=== PATIENT | female | born 1955 | race Caucasian/White ===

== ENCOUNTER 2018-02-11 05:30 | Day surgery (SDC) | payer OTHER ==
[~2018-02-11] VITALS: Ht 162.6 cm; Wt 99.8 kg
--- NOTE | ~2018-02-11 | H ---
[facility] [place] [address] HISTORY AND PHYSICAL Name: MIAN ESQUIVEL Room #: DEP [facility]..#: [id number] Admission: 02/11/18 Attend Phys: Sulaiman Colon MD Discharge: 02/11/18 Date of : 53 Report #: [id number] THIS REPORT FOR: //name// CC: FAM unknown Sulaiman Colon DATE OF PROCEDURE: 02/11/2018 HISTORY OF PRESENT ILLNESS: The patient underwent tooth extraction with bone graft placement on 01/02/2018. One week later, she developed a sinus infection with pressure and discomfort in her left cheek with congestion. She was placed on three different antibiotics and steroids, but still is not doing well. A CT scan of her sinuses shows complete opacification of the left maxillary sinus with loss of bone along the floor in the area of her extraction. PAST MEDICAL HISTORY: Otherwise, not significant. MEDICATION: Her only medication is Synthroid. ALLERGIES: SHE IS ALLERGIC TO PENICILLIN AND TETRACYCLINE. PHYSICAL EXAMINATION: Her nose was clear. She does not have a fistula in the upper left side where the tooth was extracted. IMPRESSION: Left maxillary sinusitis. PLAN: Left maxillary antrostomy. <ELECTRONICALLY SIGNED> By: Sulaiman Colon MD 02/14/18 1330 [id number] Sulaiman Colon MD /nt
--- NOTE | ~2018-02-11 | O ---
[facility] [place] [address] OPERATIVE REPORT Name: MIAN ESQUIVEL Room #: DEP [facility].#: [id number] Admission: 02/11/18 Attend Phys: Sulaiman Colon MD Discharge: 02/11/18 Date of : 53 Report #: [id number] THIS REPORT FOR: //name// CC: FAM unknown Sulaiman Colon DATE OF SERVICE: 02/11/2018 PREOPERATIVE DIAGNOSIS: Left maxillary sinusitis. POSTOPERATIVE DIAGNOSIS: Left maxillary sinusitis. OPERATIVE PROCEDURE: Left maxillary antrostomy with removal of tissue. ANESTHESIA: General by laryngeal mask. DESCRIPTION OF PROCEDURE: The patient was taken to the operating room and placed in supine position. General anesthesia was induced by laryngeal mask. Once adequate general anesthesia was obtained, local nasal anesthesia was induced by submucoperiosteal injection of 1% lidocaine with 1:100,000 epinephrine and topical application of cocaine solution. The patient was then draped in a sterile manner. The nasal endoscope was used to visualize the left nasal cavity, and the middle turbinate was deviated medially. The uncinate process was removed using the microdebrider, and there was a lot of swelling in the middle meatus. I punctured the soft fontanelle with the microdebrider and removed very thick swollen tissue and then found the natural opening of the maxillary sinus. This was enlarged posteriorly and inferiorly by removing the soft fontanelle. The sinus itself was filled with purulence, and the mucosa was incredibly swollen, especially along the floor. I did remove some of this tissue inferiorly in order to make sure that there was a large maxillary antrostomy. FloSeal was placed into the middle meatus for hemostasis. The patient tolerated the procedure well. Blood loss approximately 50 mL. The patient was then awoken and taken to the recovery room in stable condition for postoperative monitoring. <ELECTRONICALLY SIGNED> By: Sulaiman Colon MD 02/14/18 1332 [id number] [id number] Sulaiman Colon MD /nt
[~2018-02-11 05:30] MED LIST: SYNTHROID50 MCG PO
[2018-02-11 12:23] VITALS: BP 148/64
[2018-02-11 13:00] VITALS: BP 148/64
== END 2018-02-11 13:50 | disposition home or self-care (01) ==
LOC: TBA 05:30 → OR 05:30 → TBA 05:31 → OR 08:04
DX: J32.0 Chronic maxillary sinusitis (principal); Z79.899 Other long term (current) drug therapy; Z88.0 Allergy status to penicillin; Z88.8 Allergy status to other drugs, medicaments and biological substances
CPT/HCPCS: 50010; 50101; 50386; 50398; 51751; 56635; 62110; 62900; 64037; 70005